=== PATIENT | female | born 1985 | race Caucasian/White ===

== ENCOUNTER 2018-11-10 16:08 | Emergency (ER) | payer OTHER ==
[~2018-11-10] VITALS: Ht 167.6 cm; Wt 59.0 kg
== END 2018-11-10 20:05 | disposition home or self-care (01) ==
LOC: ER 16:08
DX: O26.892 Other specified pregnancy related conditions, second trimester (principal); K29.70 Gastritis, unspecified, without bleeding; Z34.02 Encounter for supervision of normal first pregnancy, second trimester

== ENCOUNTER 2022-03-15 19:06 | Emergency (ER) | payer OTHER ==
[~2022-03-15] VITALS: Ht 167.6 cm; Wt 54.4 kg
== END 2022-03-15 21:17 | disposition home or self-care (01) ==
LOC: ER 19:06
DX: R10.32 Left lower quadrant pain (principal); Z91.013 Allergy to seafood